=== PATIENT | male | born 1985 | race Caucasian/White ===

== ENCOUNTER 2018-11-20 09:53 | Emergency (ER) | payer OTHER ==
[~2018-11-20] VITALS: Ht 177.8 cm; Wt 95.3 kg
[~2018-11-20 09:53] MED LIST: AMOXICILLIN500 M1 PO; BIAXIN FILMTAB500 MG PO; PRILOSEC20 MG PO; PRILOSEC40 MG PO
[2018-11-20 09:56] VITALS: Ht 177.8 cm; Wt 95.3 kg
[2018-11-20 10:39] VITALS: BP 134/97
== END 2018-11-20 10:39 | disposition home or self-care (01) ==
LOC: ED 09:53
DX: S93.401A Sprain of unspecified ligament of right ankle, initial encounter (principal); Z98.890 Other specified postprocedural states; X50.1XXA Overexertion from prolonged static or awkward postures, initial encounter; Y93.89 Activity, other specified; Y92.89 Other specified places as the place of occurrence of the external cause; Y99.8 Other external cause status